=== PATIENT | male | born 1980 | race Two or more races ===

== ENCOUNTER → 2021-01-31 | Outpatient (CLI) | payer OTHER | LOC: LAB 08:49 | PROVIDERS: ATTEND Nurse Anesthetist, Certified Registered | DX: Z01.812 Encounter for preprocedural laboratory examination (principal); Z20.822 Contact with and (suspected) exposure to COVID-19 | CPT/HCPCS: U0003 ==

== ENCOUNTER → 2021-02-05 | Day surgery (SDC) | payer OTHER ==
[~2021-02-05] MED LIST: ACETAMINOPHEN 500 MG TABLET PO ONE; BUPIVACAINE-EPI 0.25%-1:200000 MPF 30 ML VIAL. INJ ONE; BUPIVACAINE-EPI 0.25%-1:200000 MPF 30 ML VIAL. ONE; DEXAMETHASONE SOD PHOS 20 MG/5 ML VIAL. ONE; GLYCOPYRROLATE 1 MG/5 ML VIAL. ONE; IPRATRPIUM/ALBUTEROL 0.5/2.5MG 3 ML NEBU. NEB PRN; IV RINGERS SOLUTION,LACTATED 1,000 ML IV SCH; KETOROLAC 30 MG/ML VIAL. ONE; LIDOCAINE 2% PF 5 ML VIAL. ONE; MIDAZOLAM HCL PF 2 MG/2 ML VIAL. IV ONE; MIDAZOLAM HCL PF 2 MG/2 ML VIAL. ONE; NEOSTIGMINE 10 MG/10 ML VIAL. ONE; ONDANSETRON PF 4 MG/2 ML VIAL. IV PRN; PROPOFOL 10,000 MCG/ML (20ML) VIAL IV ONE; ROCURONIUM 50 MG/5 ML VIAL. ONE; SEVOFLURANE 31 TO 60 MINUTES. IH ONE; SUCCINYLCHOLINE 200 MG/10 ML VIAL. ONE; ceFAZolin SODIUM 2 GM in IV DEXTROSE 5% 50 ML IV ONE
--- NOTE | 2021-02-05 09:15 | PDOC4 ---
Operative Report DATE February 052020 at 913 Preop Diagnosis Umbilical hernia Post-op Diagnosis Same Operation Performed Umbilical hernia repair Patient is 40-year-old male with complaints of a painful bulge at his umbilicus present for approximately a year that he is noticed it. The procedure of umbilical hernia repair was explained to the patient detail risk-benefit were also discussed occluding bleeding infection alternatives to this procedure also discussed with the patient who seemed to understand and gave both verbal and written consent to have the procedure performed. Patient was taken to the operating room placed in supine position general anesthesia was initiated once patient was sleeping intubated his abdomen was prepped and draped usual sterile fashion using ChloraPrep. Area around the umbilicus was injected with 1% lidocaine with epinephrine incision was made just above the umbilicus with 15 blade scalpel electrocautery was used to excise the hernia sac. The hernia defect was then closed with a [id number] 0 Vicryl suture. Deep subcutaneous layer was closed with running 3-0 Vicryl and skin was reapproximated for subcuticular Monocryl Mastisol Steri-Strips and island dressings were applied. Patient was awakened and extubated operating room taken to recovery in stable condition all sponge instrument needle counts listed as correct estimated blood loss 5 mL Surgeon Los ANESTHESIA PROPOSED: GENERAL, LOCAL Blood Loss 5 mL Specimen None Complications None PAXTON CORREA MD February 05, 2021 09:15
--- NOTE | 2021-02-05 09:18 | DISCH ---
DISCHARGE INSTRUCTIONS-DC Condition on Discharge Condition on Discharge: Stable Activity after Discharge Activity Instructions for Disc: Avoid exertion Other activity instructions: No lifting more than 20 pounds for 2 weeks Diet after Discharge Diet after Discharge: Regular Wound/Incision Care Other wound/incision instructi: Shani shower in 24 hours Contacting the [facility] after DC Call your doctor for: If your condition worsens Follow-Up Follow up with: Dr. Correa in 2 weeks PAXTON CORREA MD February 05, 2021 09:18
[2021-02-05 10:13] VITALS: BP 122/73
== END | disposition home or self-care (01) ==
LOC: EDSEX → SURG 07:26 → EDUNIT# 09:00
PROVIDERS: ATTEND Surgery
DX: K42.9 Umbilical hernia without obstruction or gangrene (principal); Z72.89 Other problems related to lifestyle
CPT/HCPCS: 49585; J0330; J0696; J1100; J1885; J2001; J2250; J2704; J2710; J3010; J3490; J7120